=== PATIENT | male | born 1955 | race Caucasian/White ===

== ENCOUNTER 2017-10-20 06:09 | Observation (INO) | payer OTHER ==
--- NOTE | 2017-10-19 16:53 | GHP ---
[f rep st] PREOP HISTORY AND PHYSICAL DATE OF ADMISSION: 10/20/2017 ADMISSION DIAGNOSIS: Benign prostatic hypertrophy with urinary retention. HISTORY OF PRESENT ILLNESS: This is a 62-year-old gentleman who was referred because of moderately s ymptomatic BPH. He denies any erectile dysfunction. His AUA score initially was 22, and quality of life was unhappy at 4. His postvoid residual exceeded 650 mL. He has had a cystoscopy and transrect al ultrasound that revealed intravesical lobe of the prostate with obstruction and trabeculation of b ladder and urodynamics revealed obstruction. At the present time, we have outlined his options of th erapy of photo vaporization of the prostate, resume procedure or TURP and at the present time he has elected to undergo the TURP. Indication and complications associated with this were discussed. Writt en and verbal consent was obtained. PAST MEDICAL HISTORY: He has had urinary retention. PAST SURGICAL HISTORY: Cyst removal. MEDICATIONS: Include Advil and melatonin. ALLERGIES: None. SOCIAL HISTORY: Social drinking only, nonsmoker. . IMMUNIZATIONS: Up to date. REVIEW OF SYSTEMS: Negative cardiac, respiratory, GI, and endocrine. PHYSICAL EXAMINATION: VITAL SIGNS: Stable. CHEST: Clear. HEART: Regular rate and rhythm. ABDOM EN: Normal, no organomegaly, rebound or guarding. EXTREMITIES: Lower extremities are normal at the present time. IMPRESSION: He is admitted for a transurethral resection of the prostate. Copy requested to: Boo Saleh MD /[id number]/MODL
[2017-10-20] MEDS ORDERED: LR 1,000 ML IV ONE (06:11)
[2017-10-20] MEDS ORDERED: LIDOCAINE 2% JELLY 20 ML (UROJECT) ONE (06:44)
[2017-10-20 06:55] LABS: PLATELET COUNT 184 10^3/uL (150-400)
--- NOTE | 2017-10-20 06:56 | PDANEPAE ---
ANE History of Present Illness 62 year old male for TURP. ANE Past Medical History - Cardiovascular History Hx Hypertension: No Hx Arrhythmias: No Hx Chest Pain: No Hx Coronary Artery / Peripheral Vascular Disease: No Hx CHF / Valvular Disease: No Hx Palpitations: No - Pulmonary History Hx COPD: No Hx Asthma/Reactive Airway Disease: No Hx Recent Upper Respiratory Infection: No Hx Oxygen in Use at Home: No Hx Sleep Apnea: Yes Sleep Apnea Screening Result - Last Documented: Positive - Neurologic History Hx Cerebrovascular Accident: No Hx Seizures: No Hx Dementia: No - Endocrine History Hx Diabetes: No Obesity: moderate - Renal History Hx Renal Disorders: No Renal History Comment: PROSTATE /BLOCKAGE - Liver History Hx Hepatic Disorders: No - Neurological & Psychiatric Hx Hx Neurological and Psychiatric Disorders: No - Cancer History Hx Cancer: No - Congenital Disorder History Hx Congenital Disorders: No - GI History Hx Gastrointestinal Disorders: No - Other Health History Other Health History: NEG - Chronic Pain History Chronic Pain: No - Surgical History Prior Surgeries: TONSILLECTOMY. VASECTOMY. CYST I&D ANE Review of Systems Review of systems is: negative Review of Systems: - Exercise capacity Exercise capacity: >=4 METS METS (RN): 5 METS ANE Patient History - Allergies Allergies/Adverse Reactions: No Allergies Allergy (Verified 10/20/17 06:31) - Home Medications Home medications: home medication list seen and reviewed Home Medications: RX: Cetirizine [ZyrTEC 10 mg (*)] 10 mg PO DAILY 05/09/15 [Last Taken 10/19/17] RX: Ibuprofen [Motrin (*)] 400 mg PO TID PRN 05/09/15 [Last Taken 10/18/17] RX: Multivitamins [Multivitamin (*)] 1 each PO DAILY 05/09/15 [Last Taken ] RX: Melatonin 5 mg PO HS 10/20/17 [Last Taken 10/18/17] - NPO status NPO Since - Liquids (Date): 10/19/17 NPO Since - Liquids (Time): 23:30 NPO Since - Solids (Date): 10/19/17 NPO Since - Solids (Time): 20:00 - Anes Hx Anes Hx: no prior problems - Smoking Hx Smoking Status: Never smoked Marijuana use: No - Alcohol Use Alcohol Use: Occasionally - Family Anes Hx Family Anes Hx: neg - N/A Family Hx Anesthesia Complications: NEG ANE Labs/Vital Signs - Labs Result Diagrams: 10/20/17 06:40 10/20/17 06:40 - Vital Signs Vital Signs: reviewed preoperatively; see RN documention for details Height: 182.88 cm Weight: 122.47 kg ANE Physical Exam - Airway Neck exam: FROM Mallampati Score: Class 2 Mouth exam: normal dental/mouth exam - Pulmonary Pulmonary: no respiratory distress - Cardiovascular Cardiovascular: regular rate and rhythym - ASA Status ASA Status: II ANE Anesthesia Plan Anesthesia Plan: general endotracheal anesthesia, GA w LMA Total IV Anesthesia: No
[2017-10-20] MEDS ORDERED: ceFAZolin 2 GM/SWFI 2 GM/20 ML SYR IVP ONE (07:03)
--- NOTE | 2017-10-20 07:03 | PDHPUP ---
History & Physical Update H&P update statement: This history and physical update is based on an assessment of the patient which was completed after admission or registration (within 24 hours), but prior to the surgery/procedure. H&P update: H&P reviewed & patient examined, no change in patient's condition since H&P completed
[2017-10-20] MEDS ORDERED: MIDAZOLAM 2 MG/2 ML VIAL IVP ONE (07:09)
[2017-10-20] MEDS ORDERED: fentaNYL 100 MCG/2 ML INJ ONE (07:20)
[2017-10-20] MEDS ORDERED: PROPOFOL 200 MG/20 ML VIAL ONE (07:20)
[2017-10-20] MEDS ORDERED: LIDOCAINE 2% 5 ML SDV ONE (07:23)
[2017-10-20] MEDS ORDERED: ceFAZolin 2 GM/DEXTROSE 100 ML IV ONE (07:30)
[2017-10-20] MEDS ORDERED: LR 500 ML IV PRN (08:07)
[2017-10-20] MEDS ORDERED: HYDROmorphONE/DILAUDID 1 MG/ML INJ IVP PRN (08:07)
[2017-10-20] MEDS ORDERED: ONDANSETRON 4 MG/2 ML VIAL IVP PRN ×2 (08:07→08:54)
[2017-10-20] MEDS ORDERED: fentaNYL 100 MCG/2 ML INJ IVP PRN (08:07)
[2017-10-20] MEDS ORDERED: PHENYLEPHRINE HCL 100 MCG/ML SYR IVP PRN (08:07)
[2017-10-20] MEDS ORDERED: DIAZEPAM 5 MG/ML 1 ML SYR IVP PRN (08:07)
[2017-10-20] MEDS ORDERED: LABETALOL HCL 5 MG/ML 20 ML MDV IVP PRN (08:07)
[2017-10-20] MEDS ORDERED: NALOXONE HCL 0.4 MG/ML INJ IVP PRN (08:07)
[2017-10-20] MEDS ORDERED: CORTISPORIN 15 GM OINTMENT TP ONE (08:29)
[2017-10-20] MEDS ORDERED: DEXAMETHASONE 4 MG/ML VIAL ONE (08:38)
[2017-10-20] MEDS ORDERED: ONDANSETRON 4 MG/2 ML VIAL ONE (08:38)
[2017-10-20] MEDS ORDERED: HYDROCODONE/APAP 5/325 TAB PO PRN (08:52)
[2017-10-20] MEDS ORDERED: OPIUM/BELLADONNA ALKALO SUPP PR PRN (08:52)
--- NOTE | 2017-10-20 08:52 | POSTOPPROG ---
Post Op Note Date of Operation: 10/20/17 Surgeon: Eric Grady Anesthesia: LMA Pre-op Diagnosis: bph Procedure: turp Inf/Abcess present in the surg proc area at time of surgery?: No EBL: Minimal Complications: none Drains: Other (goode, dictated note)
[2017-10-20] MEDS ORDERED: ACETAMINOPHEN 325 MG TAB PO PRN (08:54)
[2017-10-20] MEDS ORDERED: ONDANSETRON DISINTEGRATING 4 MG TAB PO PRN (08:54)
[2017-10-20] MEDS ORDERED: oxyCODONE IR 5 MG TAB PO PRN (08:54)
[2017-10-20] MEDS ORDERED: ZOLPIDEM TARTRATE 5 MG TAB PO PRN (08:54)
--- NOTE | 2017-10-20 08:57 | GOP ---
[f rep st] OPERATIVE REPORT DATE OF OPERATION: 10/20/2017 SURGEON: Eric Grady MD PREOPERATIVE DIAGNOSIS: Urinary retention, secondary to benign prostatic hypertrophy. POSTOPERATIVE DIAGNOSIS: Urinary retention, secondary to benign prostatic hypertrophy. PROCEDURE PERFORMED: Transurethral resection of the prostate. FINDINGS: DESCRIPTION OF PROCEDURE: Dr. Caballero provided general anesthesia. After appropriate time-out and be ing prepped and draped in normal sterile fashion, his meatus was dilated to a 22-Kazakh, and then res ectoscope was passed under direct vision in the bladder. He had +4 trabeculation of bladder and intr avesical lobe obstruction. At that point, the TUR was begun taking down the intravesical lobe of the prostate, the right lateral lobe, right posterior portion of lobe was resected. The left lateral lobe and left portion of the p osterior lobe resected. His bladder was Ellik'd free of all chips and clots. Visualization revealed no residual chips or clots. Ureteral orifices preserved. External sphincter approximated at the mi dline symmetrically. Verumontanum preserved. After being Ellik free of all chips and clots, filled his bladder with a coude maneuver and had an excellent flow of urine. Uro-Jet placed in the urethra. A -Kazakh Salas catheter placed with a 45 cc balloon inflated, traction placed, irrigated clear. He will be admitted for postoperative care. /[id number]/MODL
[2017-10-20] MEDS ORDERED: POTASSIUM Cl (KCl) 10 MEQ in D5W 1/2 NS 1,000 ML IV SCH (09:00)
[2017-10-20] MEDS: MULTIVITAMINS 1 EACH TAB PO SCH (11:14)
[2017-10-20] MEDS: CETIRIZINE 10 MG TAB PO SCH (11:14)
--- NOTE | 2017-10-20 13:09 | WOCRNPDOC ---
WOCRN Advanced Assessment Note - Skin Integrity Problem, Advanced Assess Right Upper Thigh Dressing Type: Open to Air Exudate Amount: None Integumentary Issue Intervention: Dressing Removed (Dressing removed by nursing ; residual adhesive removed by this author.) Skin Integrity Problem Comment: Consult request to evaluate possible reaction to adhesive from Stat-lock on patient's R upper thigh. Pin-point, scattered redness noted on hair follicles, consistent w/ very mild folliculitis from ingrown hairs. This area was shaved before the Stat-lock was applied. No contact dermatitis observed, indicating an allegic reaction to the adhesive. Removed residual adhesive with adhesive remover. No need for wound care to follow.
--- NOTE | 2017-10-20 14:14 | ASMTCMCOM ---
CM Note CM Note Notes: Pt admitted OBS for BPH. He will have no DC needs. Date Signed: 10/20/2017 02:14 PM Electronically Signed By:Key Quintana LCSW
[2017-10-20] MEDS: IBUPROFEN 200 MG TAB PO PRN ×2 (15:16→21:45)
--- NOTE | 2017-10-20 15:21 | POSTANESTH ---
Post Anesthetic Evaluation Cardiovascular Status: Normal, Stable, Similar to Pre-Op Cond Respiratory Status: Normal, Stable, Similar to Pre-op Cond. Level of Consciousness/Mental Status: Can Participate in Eval, Alert and Oriented Pain Control: Adequate, Prn Tx Ordered Nausea/Vomiting Control: Adequate, Prn Tx Ordered Complications Possibly Related to Anesthesia: None Noted
[2017-10-20] MEDS: CORTISPORIN 15 GM OINTMENT TP SCH ×2 (18:05→20:26)
[2017-10-20] MEDS ORDERED: MELATONIN 3 MG TAB PO SCH (21:00)
[2017-10-21] MEDS: CORTISPORIN 15 GM OINTMENT TP SCH ×3 (01:54→08:16)
[2017-10-21] MEDS: MULTIVITAMINS 1 EACH TAB PO SCH (08:16)
[2017-10-21] MEDS: CETIRIZINE 10 MG TAB PO SCH (08:16)
--- NOTE | 2017-10-21 10:58 | SOAPPROG ---
SOAP Progress Note Assessment/Plan: Assessment: BPH with obstruction/lower urinary tract symptoms Acute POD 1, doing well Plan: dc goode and dc home, path pending 10/21/17 10:57 Subjective: no problem Objective: Vital Signs Temp Pulse Resp BP Pulse Ox 36.6 C 74 16 136/79 H 92 10/21/17 07:42 10/21/17 07:42 10/21/17 07:42 10/21/17 07:42 10/21/17 07:42 Laboratory Results 10/20/17 06:40 10/20/17 06:40 10/20/17 10/21/17 10/22/17 05:59 05:59 05:59 Intake Total 2528 Output Total 3060 Balance -532 Physical Exam - Physical Exam General Appearance: alert Neck: supple Respiratory: No respiratory distress Cardiac/Chest: regular rate, rhythm Neuro/Psych: alert, oriented x 3 ICD10 Worksheet Patient Problems: Problems Problem Status Onset BPH with obstruction/lower urinary tract symptoms Acute Perirectal abscess Acute - ICD10 Problem Qualifiers (1) BPH with obstruction/lower urinary tract symptoms
--- NOTE | 2017-10-21 11:09 | ASMTLACE ---
LACE Length of stay for Answers: 1 day current admission Acuity / Level of Answers: No Care: Did the patient have an inpatient admission? Comorbidities - select Answers: Other Notes: BPH all that apply # of Emergency department Answers: 0 visits in the last 6 months Score: 2 Date Signed: 10/21/2017 11:08 AM Electronically Signed By:Vania Smith RN
--- NOTE | 2017-10-21 11:14 | ASMTCMCOM ---
CM Note CM Note Notes: Chart reviewed. Patient seen by Dr. Grady and is medically cleared for discharge to home. No needs odentified. CM available should needs arise. Plan: Home independently. Date Signed: 10/21/2017 11:14 AM Electronically Signed By:Vania Smith RN
[2017-10-21 11:19] VITALS: BP 145/89
== END 2017-10-21 13:45 | disposition home or self-care (01) ==
LOC: F1N 06:09 → INTOOBSV 06:09 → F1N 10:01
PROVIDERS: ADMIT Specialist; ATTEND Specialist
PROC: 0VT08ZZ Resection of Prostate, Via Natural or Artificial Opening Endoscopic (ICD-10-PCS; principal; 2017-10-20 07:15)
DX: N40.1 Benign prostatic hyperplasia with lower urinary tract symptoms (principal)
CPT/HCPCS: 52601; G0378; J0690; J1100; J2250; J2405; J2704; J3010; J3480